=== PATIENT | female | born 1990 | race Caucasian/White ===

== ENCOUNTER 2020-03-14 09:56 | Inpatient (IN) | payer OTHER ==
[~2020-03-14] VITALS: Ht 160 cm; Wt 93.4 kg
[~2020-03-14 09:56] MED LIST: ADULT ASPIRIN81 MG PO; DOCUSATE SODIU100 MG PO; FOLIC ACID1 MG PO; LOVENOX40 MG/0.4 SUBCUTANEO; Mylicon 125MG PO; NIFEDIPINE20 MG PO; OXYC1TAB9 PO; PRENATAL ONE T1 EACH PO; PREPLUS CA-FE1 EACH PO
[2020-03-14] MEDS ORDERED: FOLIC ACID20 MG PO (10:52)
[2020-03-14] MEDS ORDERED: LOVENOX40 MG/0.4 SUBCUTANEO (10:52)
[2020-03-14] MEDS ORDERED: NIFEDIPINE20 MG PO (10:53)
[2020-03-14] MEDS ORDERED: B TREX PO (10:54)
[2020-03-17] MEDS ORDERED: OXYC1TAB9 PO (07:52)
[2020-03-17] MEDS ORDERED: LOVENOX40 MG/0.4 SUBCUTANEO (07:52)
[2020-03-17] MEDS ORDERED: SIMETHICONE125 M1 PO (07:52)
[2020-03-17] MEDS ORDERED: DOCUSATE SODIU100 MG PO (07:52)
[2020-03-17] MEDS ORDERED: PREPLUS CA-FE1 EACH PO (07:52)
== END 2020-03-17 11:29 | disposition home or self-care (01) | DRG 787 ==
LOC: OB/GYN 09:56 → LDR 09:56 → OB/GYN 15:57
PROVIDERS: ADMIT Obstetrics & Gynecology; ATTEND Obstetrics & Gynecology
PROC: 0DNW0ZZ Release Peritoneum, Open Approach (ICD-10-PCS; 2020-03-14)
PROC: 4A1HXFZ Monitoring of Products of Conception, Cardiac Rhythm, External Approach (ICD-10-PCS; 2020-03-14)
PROC: 3E033VJ Introduction of Other Hormone into Peripheral Vein, Percutaneous Approach (ICD-10-PCS; 2020-03-14)
PROC: 10D00Z1 Extraction of Products of Conception, Low, Open Approach (ICD-10-PCS; principal; 2020-03-14 13:00)
DX: O34.211 Maternal care for low transverse scar from previous cesarean delivery (principal); E72.12 Methylenetetrahydrofolate reductase deficiency; O99.284 Endocrine, nutritional and metabolic diseases complicating childbirth; Z20.828 Contact with and (suspected) exposure to other viral communicable diseases; O99.892 Other specified diseases and conditions complicating childbirth; N73.6 Female pelvic peritoneal adhesions (postinfective); Z3A.36 36 weeks gestation of pregnancy; Z37.0 Single live birth

== ENCOUNTER 2022-05-03 00:58 | Outpatient (CLI) | payer OTHER ==
[~2022-05-03 00:58] MED LIST changes: +B TREX PO; +FOLIC ACID20 MG PO; +SIMETHICONE125 M1 PO
== END 2022-05-03 09:42 | disposition home or self-care (01) ==
LOC: OBS/DEL 00:58
PROVIDERS: ATTEND Obstetrics & Gynecology Maternal & Fetal Medicine
DX: S40.819A Abrasion of unspecified upper arm, initial encounter (principal); W19.XXXA Unspecified fall, initial encounter; Y93.9 Activity, unspecified; Y92.9 Unspecified place or not applicable; O26.892 Other specified pregnancy related conditions, second trimester; Z3A.25 25 weeks gestation of pregnancy; Z91.013 Allergy to seafood

== ENCOUNTER 2022-06-17 15:44 | Outpatient (CLI) | payer OTHER | END 2022-06-17 17:08 | disposition home or self-care (01) | LOC: NST 15:44 | PROVIDERS: ATTEND Obstetrics & Gynecology Maternal & Fetal Medicine | DX: Z34.83 Encounter for supervision of other normal pregnancy, third trimester (principal) ==

== ENCOUNTER 2022-07-05 08:24 | Outpatient (CLI) | payer OTHER | END 2022-07-05 09:24 | disposition home or self-care (01) | LOC: NST 08:24 | PROVIDERS: ATTEND Obstetrics & Gynecology Gynecology | DX: Z34.83 Encounter for supervision of other normal pregnancy, third trimester (principal) ==

== ENCOUNTER 2022-07-16 12:28 | Inpatient (IN) | payer OTHER ==
[~2022-07-16] VITALS: Ht 160 cm; Wt 95.7 kg
[2022-07-16] MEDS ORDERED: PRENATAL TABLE1 EAC1 PO (13:32)
[2022-07-16] MEDS ORDERED: PRENATAL TABLE1 EAC4 PO (13:33)
== END 2022-07-18 14:58 | disposition home or self-care (01) | DRG 783 ==
LOC: LDR 12:28 → OB/GYN 14:24
PROVIDERS: ADMIT Obstetrics & Gynecology Gynecology; ATTEND Obstetrics & Gynecology Gynecology
PROC: 0UB70ZZ Excision of Bilateral Fallopian Tubes, Open Approach (ICD-10-PCS; 2022-07-16)
PROC: 4A1HXCZ Monitoring of Products of Conception, Cardiac Rate, External Approach (ICD-10-PCS; 2022-07-16)
PROC: 10D00Z1 Extraction of Products of Conception, Low, Open Approach (ICD-10-PCS; principal; 2022-07-16 12:45)
DX: O34.211 Maternal care for low transverse scar from previous cesarean delivery (principal); O45.8X3 Other premature separation of placenta, third trimester; O60.14X0 Preterm labor third trimester with preterm delivery third trimester, not applicable or unspecified; Z3A.35 35 weeks gestation of pregnancy; Z37.0 Single live birth; Z20.822 Contact with and (suspected) exposure to COVID-19; Z30.2 Encounter for sterilization